=== PATIENT | female | born 1935 | race Hispanic/Latino ===

== ENCOUNTER → 2020-05-08 | Outpatient (CLI) | payer MEDICARE | END | disposition home or self-care (01) | LOC: SHCH 09:42 | PROVIDERS: ATTEND Internal Medicine Cardiovascular Disease | DX: I87.2 Venous insufficiency (chronic) (peripheral) (principal); R60.9 Edema, unspecified | CPT/HCPCS: 93970 ==

== ENCOUNTER → 2021-06-01 | Outpatient (CLI) | payer MEDICARE | END | disposition home or self-care (01) | LOC: RAH 09:19 | PROVIDERS: ATTEND Internal Medicine Gastroenterology | DX: K31.89 Other diseases of stomach and duodenum (principal); D50.9 Iron deficiency anemia, unspecified | CPT/HCPCS: 74240 ==

== ENCOUNTER 2022-12-23 06:17 | Day surgery (SDC) | payer MEDICARE ==
[2022-12-20 16:05] LABS: HEMATOCRIT 33.7 % (36-48); MEAN CORPUSCULAR HEMOGLOBIN 29.1 pg (27.0-33.0); MEAN CORPUSCULAR HGB CONC 32.3 g/dL (32.0-36.0); MEAN CORPUSCULAR VOLUME 89.9 fL (79-99); RED BLOOD CELL COUNT(AUTO) 3.75 MIL/uL (4.00-5.50); RED CELL DISTRIBUTION WIDTH 14.7 % (11.0-15.5); WHITE BLOOD COUNT (AUTO) 7.9 K/uL (4.8-10.8)
[2022-12-20 16:07] VITALS: BP 128/62
[2022-12-20 16:16] LABS: CREATININE 2.2 mg/dL (0.5-1.5); POTASSIUM 3.8 mmol/L (3.5-5.1)
[2022-12-20 16:19] LABS: INR 0.94 (0.85-1.15); PROTHROMBIN TIME 10.3 SEC (9.6-11.6)
[2022-12-20 16:21] LABS: PARTIAL THROMBOPLASTIN TIME 28.4 SEC (26.3-35.5)
[2022-12-23] VITALS (17 sets, daily range): BP systolic 135–184; BP diastolic 52–78
[~2022-12-23 06:17] MED LIST: ACET-2247 PO; AMLO-257 PO; ATOR20TA65 PO; CLON0.1T PO; DOCU100T PO; DONE5TAB33 PO; HYDR-4153 PO; INSU100V3 SQ; ISOS30TA92 PO; LACT10SO9 PO; LEVO75CA5 PO; ZOLP10TA2 PO
[2022-12-23 07:02] LABS: CREATININE 2.4 mg/dL (0.5-1.5); POTASSIUM 3.8 mmol/L (3.5-5.1)
[2022-12-23] MEDS ORDERED: 0.9% NACL 500ML IV.SOLN 500 ML IV ONE (07:23)
[2022-12-23] MEDS ORDERED: CEFAZOLIN SODIUM 1 GM VIAL ONE ×2 (07:32→12:36)
[2022-12-23] MEDS ORDERED: BUPIVACAINE/PF 0.5% 30ML VIAL ONE (07:32)
[2022-12-23] MEDS ORDERED: LIDOCAINE HCL 1% 20 ML VIAL ONE (07:32)
[2022-12-23] MEDS: CEFAZOLIN SODIUM 2 GM VIAL ONE ×2 (08:51→12:05)
[2022-12-23] MEDS ORDERED: DEXAMETHASONE SOD PHOSPHATE 10MG/ML 1ML VIAL ONE (11:45)
[2022-12-23] MEDS ORDERED: ONDANSETRON 4MG INJ ONE ×2 (11:45→14:07)
[2022-12-23] MEDS ORDERED: LIDOCAINE PF 100MG/5ML (2%) SYRINGE 5ML ONE (11:45)
[2022-12-23] MEDS ORDERED: SUCCINYLCHOLINE CHLORIDE 20 MG/ML 10 ML VIAL ONE (11:45)
[2022-12-23] MEDS ORDERED: PROPOFOL 10 MG/ML 20ML VIAL IV ONE (11:46)
[2022-12-23] MEDS ORDERED: NEOSTIGMINE 5MG/5ML SYR IV ONE (11:46)
[2022-12-23] MEDS ORDERED: FENTANYL CITRATE PF 50 MCG/1 ML 2ML VIAL ONE (11:46)
[2022-12-23] MEDS ORDERED: GLYCOPYRROLATE 1 MG/5 ML SYRINGE ONE (11:46)
[2022-12-23] MEDS ORDERED: MIDAZOLAM HCL 1 MG/ML 2ML VIAL ONE (11:46)
[2022-12-23] MEDS ORDERED: ROCURONIUM 10MG/1ML SYR 10 MG/ML ML ONE (11:46)
[2022-12-23] MEDS ORDERED: ROPIVACAINE 0.5% 5MG/ML 30ML IJ ONE (11:47)
[2022-12-23] MEDS ORDERED: LABETALOL 20MG SYG IV ONE (14:02)
== END 2022-12-23 15:40 ==
LOC: DAH 06:17
PROVIDERS: ATTEND Thoracic Surgery (Cardiothoracic Vascular Surgery)
DX: E11.22 Type 2 diabetes mellitus with diabetic chronic kidney disease (principal); Z20.822 Contact with and (suspected) exposure to COVID-19; I12.0 Hypertensive chronic kidney disease with stage 5 chronic kidney disease or end stage renal disease; N18.6 End stage renal disease; I45.10 Unspecified right bundle-branch block; E03.9 Hypothyroidism, unspecified; Z99.2 Dependence on renal dialysis; Z79.899 Other long term (current) drug therapy; Z79.01 Long term (current) use of anticoagulants; Z95.0 Presence of cardiac pacemaker
CPT/HCPCS: 80048 ×2; 85027; 85610; 85730; 86850 ×2; 86900 ×2; 86901 ×2; 87426; 36415 ×2; 71045; 93005; 36830; 82948; A6260; A4663; A6207; J7030; A4452; J7040; J3010; J0690 ×3; J3490 ×2; J1100; J2710; J0330; J2001; J2704; J2405 ×2; J1644 ×2; J2795; G0168; A4649 ×3; C1713 ×2; A4930; C1768; A4215; A4223; A4222; A4221; J2250

== ENCOUNTER → 2023-02-07 | Outpatient (CLI) | payer MEDICARE | END | disposition home or self-care (01) | LOC: SHCH 10:55 | PROVIDERS: ATTEND Internal Medicine Cardiovascular Disease | DX: I70.203 Unspecified atherosclerosis of native arteries of extremities, bilateral legs (principal) | CPT/HCPCS: 93925 ==